=== PATIENT | female | born 1935 | race Caucasian/White ===

== ENCOUNTER 2022-05-31 08:00 | Emergency (ER) | payer MEDICARE, BC, SELFPAY ==
[2022-05-31 08:28] LABS: Appearance Urine Slightly Cloudy (Clear); Bilirubin Urine Negative (Negative); Blood Urine 2+ (Negative); Color Urine Yellow (Yellow); Glucose Urine Negative (Negative); Ketones Urine Negative (Negative); Leukocyte Esterase Urine 1+ (Negative); Nitrite Urine Positive (Negative); Protein Urine 1+ (Negative); Urobilinogen Urine 0.2 (0.2-1.0); pH Urine 5.5 (5.0-8.5)
[2022-05-31 08:31] VITALS: BP 141/69; PULSE 76; RESP 16; TEMP 36.1; O2SAT 95; BMI 44.2
--- NOTE | 2022-05-31 08:31 | ED_ITS ---
HPI - General Adult General Time Seen by Provider: 08:31 Date Seen: 05/31/22 Chief complaint: Urogenital Problems, Female Stated complaint: UTI Time Seen by Provider: 05/31/22 08:11 Source: patient Mode of arrival: wheelchair Limitations: physical limitation History of Present Illness HPI narrative: Patient is an 86 year white female presents with her family with a complaint of urinary tract infection. The patient reports she was on Z-Omar recently for bronchitis, but now has had difficulty with urination urinating infrequently, some dysuria. She is concerned about this. She was started on Keflex yesterday for UTI over the phone by her physician. She denies fever rigors back pain cough. She was mostly concerned she did have good urine output so she presented to the ED. The knot patient is not short of breath. Has not had renal insufficiency, is a type 2 diabetic. She also reports she recently started on Jardiance per her regular doctor. Related Data Home Medications Medication Instructions Recorded Confirmed acetaminophen 500 mg tablet 500 mg PO DAILY PRN 12/16/21 05/31/22 dapagliflozin 10 mg tablet 10 mg PO DAILY 12/16/21 12/16/21 isosorbide mononitrate 30 mg 30 mg PO DAILY 12/16/21 05/31/22 tablet,extended release 24 hr lisinopril 20 1 tab PO DAILY 12/16/21 05/31/22 mg-hydrochlorothiazide 25 mg tablet nitroglycerin 0.4 mg sublingual 0.4 mg sublingual Q5M PRN 12/16/21 05/31/22 tablet triamcinolone acetonide 0.1 % 2-3 topical .Bedtime 12/16/21 12/16/21 lotion carvedilol 6.25 mg tablet 6.25 mg PO BID 01/28/22 05/31/22 empagliflozin 10 mg tablet 10 mg PO QDAY 01/28/22 05/31/22 gabapentin 100 mg capsule 100 mg PO QDAY 01/28/22 glipizide 10 mg tablet 5 mg PO QDAY 01/28/22 05/31/22 gabapentin 100 mg capsule 100 mg PO .Bedtime 05/13/22 05/13/22 Previous Rx's Medication Instructions Recorded famotidine 20 mg tablet (Pepcid) 20 mg PO .HS #30 tabs 12/16/21 tizanidine 2 mg tablet 2 mg PO .hs PRN muscle spasticity 01/06/22 90 days #90 tabs clindamycin HCl 300 mg capsule 600 mg PO ONCE #4 caps 02/10/22 cetirizine 10 mg tablet 10 mg PO DAILY #90 tabs 02/12/22 pantoprazole 20 mg tablet,delayed 20 mg PO QDAY #90 tabs 03/05/22 release rosuvastatin 5 mg tablet 5 mg PO .Bedtime #60 tabs 05/20/22 cephalexin 500 mg capsule 500 mg PO TID #21 caps 05/30/22 Allergies Allergy/AdvReac Type Severity Reaction Status Date / Time penicillin V Allergy Mild Unknown Verified 05/31/22 08:28 pregabalin Allergy Mild Dry mouth Verified 05/31/22 08:28 tetracycline Allergy Mild Unknown Verified 05/31/22 08:28 tramadol Allergy Mild Unknown Verified 05/31/22 08:28 acetaminophen AdvReac Mild Nausea Verified 05/31/22 08:28 hydrocodone AdvReac Mild Nausea Verified 05/31/22 08:28 Sulfa drugs Allergy Mild Unknown Uncoded 05/13/22 09:15 Review of Systems Status of ROS: Reports: 6 or more systems reviewed and unremarkable except as noted in History and below [facility] Medical History Abdominal pain Chest pain Cough Difficulty sleeping Dyspnea on exertion Elevated troponin I level Encounter for annual wellness exam in Medicare patient Immunocompromised due to corticosteroids Left inguinal pain Left shoulder pain Low back pain Neck pain Pain of left lower extremity Post-nasal discharge Rectal hemorrhage Sore throat Strain of left hip adductor muscle Trochanteric bursitis Unstable angina pectoris Weight gain Surgical History History of bilateral cataract extraction History of cholecystectomy History of coronary artery bypass surgery History of coronary artery stent placement History of hysterectomy History of tonsillectomy and adenoidectomy Social History Narrative: Non-smoker Smoking Status: Former smoker Do you use any of these nicotine containing products: None How often do you have a drink containing alcohol: never AUDIT-C Alcohol total score: 0 Non-prescribed substance use: denies use Exam Narrative: Exam Narrative: Patient is alert orient x3, does appear in any distress, has elevated BMI Abdomen is soft nontender no rebound, extremities good perfusion, no suprapubic tenderness. Patient denies any back pain Bladder scan pending urinalysis pending Const: Vital Signs, click to edit/add: Vital Signs - 24 hr 05/31/22 08:31 Temperature 97.0 F L Pulse Rate [Pulse Oximeter] 76 Respiratory Rate 16 Blood Pressure [Le ft Upper Arm] 141/69 H Pulse Oximetry 95 Oxygen Delivery Me thod Room Air Course Vital Signs Vital signs: Initial Vital Signs Temperature 97.0 F L 05/31/22 08:31 Temperature Source Temporal Artery Scan 05/31/22 08:31 Pulse Rate 76 05/31/22 08:31 Pulse Rhythm 05/31/22 08:31 Pulse Strength 3+ Normal 05/31/22 08:31 Respiratory Rate 16 05/31/22 08:31 Blood Pressure 141/69 H 05/31/22 08:31 Blood Pressure Mean 93 05/31/22 08:31 Blood Pressure Position Supine 05/31/22 08:31 Pulse Oximetry 95 05/31/22 08:31 Oxygen Delivery Method 05/31/22 08:31 Vital Signs Temperature 97.0 F L 05/31/22 08:31 Pulse Rate 76 05/31/22 08:31 Respiratory Rate 16 05/31/22 08:31 Blood Pressure 141/69 H 05/31/22 08:31 Pulse Oximetry 95 05/31/22 08:31 Oxygen Delivery Method 05/31/22 08:31 Temperature 97.0 F L 05/31/22 08:31 Pulse Rate 76 05/31/22 08:31 Respiratory Rate 16 05/31/22 08:31 Blood Pressure 141/69 H 05/31/22 08:31 Pulse Oximetry 95 05/31/22 08:31 Oxygen Delivery Method 05/31/22 08:31 Medical Decision Making MDM Narrative Medical decision making narrative: Patient has had some urinary frequency and retention, perhaps related to you to urine tract infection. She recently started on Keflex yesterday. At this point it would be reasonable to check a bladder scan see if there is urine retention, will check a urinalysis. The patient has started on Keflex as mention, so this may render her urinary tract infection/urinalysis less accurate, as well as urine culture. Disposition pending findings above. Of note is the patient denies any redness or rash in her groin area Addendum: The patient was able to void about 75 mL for urinalysis, her postvoid bladder scan reveals about 190 mL of urine. Addendum: The patient has a definite urinary tract infection based on her urinalysis. She is on Keflex now, will give her an injection of Rocephin since she has tolerated the cephalosporin up until this point and has multiple allergies. She will continue the Keflex, will give Rocephin 500 mg now, recheck with regular doctor not improving the next few days, her bladder scan does not reveal obstruction or significant retention. Recommend adequate fluid intake. We did draw some labs and I will review call them if there is abnormality or anything that needs attention. She does have greater than 100 white cells in her urine. Lab Data Labs: Lab Results 05/31/22 05/31/22 05/31/22 Range/Units 08:40 08:50 08:50 WBC 9.41 (4.50-11.00) K/uL RBC 3.50 L (4.00-5.20) m/uL Hgb 11.0 L (12.0-16.0) gm/dL Hct 32.9 L (33.0-51.0) % MCV 94 (80-100) fL MCH 31 (26-34) pg MCHC 33 (32-36) gm/dL RDW Coeff of [place] 13.8 (11.5-15.5) % Plt Count 266 (140-440) K/uL Neut % (Auto) 58.3 (42.0-72.0) % Lymph % (Auto) 17.4 L (20-44) % [place] % (Auto) 14.1 H (0.0-11.0) % Eos % (Auto) 9.4 H (0.0-7.0) % Baso % (Auto) 0.3 (0.0-3.0) % Neut # (Auto) 5.48 (1.7-7.0) K/uL Lymph # (Auto) 1.60 (0.90-2.90) K/uL [place] # (Auto) 1.30 H (0.00-0.90) K/UL Eos # (Auto) 0.90 H (0.00-0.50) K/uL Baso # (Auto) 0.03 (0.00-0.30) K/uL Sodium 138 (135-149) mmol/L Potassium 4.1 (3.6-5.1) mmol/L Chloride 109 (96-114) mmol/L Carbon Dioxide 20 (20-32) mmol/L BUN 25 (7-30) mg/dL Creatinine 1.3 (0.5-1.5) mg/dL Estimated Creat Clear 48.71 Estimated GFR 40 ml/min Glucose 148 H (60-115) mg/dL Calcium 8.8 (8.4-10.6) mg/dL Urine Color Yellow (Yellow) Urine Appearance Slightly Cloudy A (Clear) Urine pH 5.5 (5.0-8.5) Ur Specific [place] 1.020 (1.000-1.030) Urine Protein 1+ A (Negative) Urine Glucose (UA) Negative (Negative) Urine Ketones Negative (Negative) Urine Blood 2+ A (Negative) Urine Nitrite Positive A (Negative) Urine Bilirubin Negative (Negative) Urine Urobilinogen 0.2 (0.2-1.0) Ur Leukocyte Esterase 1+ A (Negative) Urine RBC 2-5 A (0-2) Urine WBC >100 A (0-5) Ur Squamous Epith Cells Moderate A (None-Few) Urine Bacteria Moderate A (None) Discharge Plan Discharge Clinical Impression: Urinary tract infection Patient Disposition: Home w/ Parent or Adult Condition: Stable Additional Instructions: Finish the Keflex medicine they have at home for the urinary tract infection, eat yogurt to prevent diarrhea, update regular doctor in the next few days not improving changes concerns or worsening can return to the ED. Activity Level: Light activity Discharge Diet: Diabetic Prescriptions: No Action dapagliflozin 10 mg tablet 10 mg PO DAILY nitroglycerin 0.4 mg tablet, sublingual 0.4 mg sublingual Q5M PRN Rx Instructions: PRN CHEST PAIN acetaminophen 500 mg tablet 500 mg PO DAILY PRN Rx Instructions: NO MORE THAN 4000 MG/DAY triamcinolone acetonide 0.1 % lotion 2-3 topical .Bedtime lisinopril-hydrochlorothiazide 20-25 mg tablet 1 tab PO DAILY isosorbide mononitrate 30 mg tablet extended release 24 hr 30 mg PO DAILY famotidine [Pepcid] 20 mg tablet 20 mg PO .HS Qty: 30 0RF gabapentin 100 mg capsule 100 mg PO .Bedtime tizanidine 2 mg tablet 2 mg PO .hs PRN (Reason: muscle spasticity) 90 Days Qty: 90 3RF gabapentin 100 mg capsule 100 mg PO QDAY empagliflozin 10 mg tablet 10 mg PO QDAY Hold Instructions: patient stopped glipizide 10 mg tablet 5 mg PO QDAY carvedilol 6.25 mg tablet 6.25 mg PO BID Rx Instructions: must administer with a meal/food clindamycin HCl 300 mg capsule 600 mg PO ONCE Qty: 4 1RF Rx Instructions: Take 2 capsules by mouth once before dental procedure. cetirizine 10 mg tablet 10 mg PO DAILY Qty: 90 2RF pantoprazole 20 mg tablet,delayed release (DR/EC) 20 mg PO QDAY Qty: 90 3RF rosuvastatin 5 mg tablet 5 mg PO .Bedtime Qty: 60 0RF cephalexin 500 mg capsule 500 mg PO TID Qty: 21 0RF Follow Up/Referrals: Nelson Tolentino MD [Primary Care Provider] - Stand Alone Forms: [facility] Info Instructions
[2022-05-31 08:56] LABS: Bacteria Urine Moderate; Squamous Epithelial Cell Urine Moderate (None-Few); WBC Urine >100 (0-5)
[2022-05-31 09:05] LABS: Basophils Absolute Auto 0.03 K/uL (0.00-0.30); Basophils Percent Auto 0.3 % (0.0-3.0); Eosinophils Percent Auto 9.4 % (0.0-7.0); Hematocrit 32.9 % (33.0-51.0); Immature Granulocytes Abs Auto 0.05 K/uL (0.00-0.30); Immature Granulocytes Pct Auto 0.5 %; Lymphocytes Percent Auto 17.4 % (20-44); Mean Corpuscular HGB Conc 33 gm/dL (32-36); Mean Corpuscular Hemoglobin 31 pg (26-34); Mean Corpuscular Volume 94 fL (80-100); Monocytes Percent Auto 14.1 % (0.0-11.0); Neutrophils Absolute Auto 5.48 K/uL (1.7-7.0); Neutrophils Percent Auto 58.3 % (42.0-72.0); Platelet Count* 266 K/uL (140-440); RDW Coefficient of Variation % 13.8 % (11.5-15.5); White Blood Count* 9.41 K/uL (4.50-11.00)
[2022-05-31 09:12] LABS: Slide Review Reflex No
[2022-05-31 09:24] LABS: Chloride* 109 mmol/L (96-114); Potassium* 4.1 mmol/L (3.6-5.1); Sodium* 138 mmol/L (135-149)
[2022-05-31 09:26] LABS: Creatinine* 1.3 mg/dL (0.5-1.5); Est. Creatinine Clearance* 48.71; Estimated Glomerular Filt Rate 40 ml/min
[2022-05-31 09:27] LABS: Blood Urea Nitrogen* 25 mg/dL (7-30); Calcium* 8.8 mg/dL (8.4-10.6); Carbon Dioxide* 20 mmol/L (20-32); Glucose* 148 mg/dL (60-115)
[2022-05-31] MEDS: cefTRIAXone 500 MG VIAL IM (09:29)
[2022-05-31] MEDS: LIDOCAINE 1% 5 ml (pf) 5 ML VIAL 1 ML IM (09:29)
== END 2022-05-31 10:05 | disposition home or self-care (01) ==
PROVIDERS: Emergency Provider Family Medicine; PCP Family Medicine
DX: N39.0 Urinary tract infection, site not specified (principal)
CPT/HCPCS: 36415; 51798; 80048; 81001; 85025; 87086; 99283; 99284; J0696

== ENCOUNTER 2022-06-23 11:08 | Outpatient (CLI) | payer MEDICARE, BC, SELFPAY ==
[2022-06-23 21:41] LABS: Albumin* 4.1 g/dL (3.3-5.0); Chloride* 105 mmol/L (96-114); Sodium* 138 mmol/L (135-149)
[2022-06-23 21:42] LABS: Potassium* 4.7 mmol/L (3.6-5.1)
[2022-06-23 21:43] LABS: Cholesterol* 173 mg/dL (90-199)
[2022-06-23 21:44] LABS: Alanine Aminotransferase* 26 U/L (4-35); Alkaline Phosphatase* 78 U/L (40-150); Aspartate Amino Transferase* 27 U/L (12-35); Bilirubin Total* 0.7 mg/dL (0.1-1.5); Blood Urea Nitrogen* 50 mg/dL (7-30); Carbon Dioxide* 21 mmol/L (20-32); Creatinine* 1.2 mg/dL (0.5-1.5); Estimated Glomerular Filt Rate 44 ml/min; Glucose* 169 mg/dL (60-115); Uric Acid* 11.5 mg/dL (2.2-8.4)
[2022-06-23 21:45] LABS: Calcium* 9.8 mg/dL (8.4-10.6); HDL Cholesterol* 56 mg/dL (>=50); LDL Cholesterol Calculated 66 mg/dL (<100); Triglycerides* 255 mg/dL (40-149)
[2022-06-23 22:08] LABS: Creatinine Urine 85.7 mg/dL
[2022-06-23 22:12] LABS: Microalbumin Creatinine Ratio 90 mg/g (0-30); Microalbumin Urine 8 mg/dL
== END 2022-06-23 11:09 | disposition home or self-care (01) ==
LOC: LKVREF 11:10
PROVIDERS: PCP Family Medicine; Visit Provider Family Medicine
DX: I20.8 Other forms of angina pectoris (principal); E11.9 Type 2 diabetes mellitus without complications; E78.5 Hyperlipidemia, unspecified; I10 Essential (primary) hypertension; M10.9 Gout, unspecified
CPT/HCPCS: 80053; 80061; 82043; 82570; 84550